=== PATIENT | male | born 1970 | race African-American/Black ===

== ENCOUNTER 2016-04-22 14:05 | Outpatient (RCR) | payer MEDICARE, OTHER ==
[~2016-04-22 14:05] MED LIST: DILAUDID4 MG ORAL; GABAPENTIN400 MG ORAL; GABAPENTIN600 MG ORAL; LOTENSIN40 MG ORAL; MS CONTIN100 MG ORAL; NAPROSYN500 M1 ORAL; OXYCODONE HCL30 MG ORAL; ROCEPHIN 11 GM/50 ML IVPB; VANCOMYCIN1 GM/2502 IVPB
== END 2016-04-23 | disposition home or self-care (01) ==
LOC: WCC 14:05
DX: L89.629 Pressure ulcer of left heel, unspecified stage (principal); G82.21 Paraplegia, complete; I10 Essential (primary) hypertension; Z90.5 Acquired absence of kidney; I82.409 Acute embolism and thrombosis of unspecified deep veins of unspecified lower extremity; M86.9 Osteomyelitis, unspecified
CPT/HCPCS: G0463

== ENCOUNTER → 2016-07-03 | Outpatient (CLI) | payer MEDICARE, OTHER ==
[2016-07-03 16:00] LABS: BASOPHILS % (AUTO) 1.4 % (0.0-2.0); LYMPHOCYTES % (AUTO) 25.9 % (20.0-45.0); MEAN CORPUSCULAR HGB CONC 35.3 G/DL (32.0-36.0); MEAN CORPUSCULAR VOLUME 85 FL (80-99); MEAN PLATELET VOLUME 7.7 FL (6.5-10.1); MONOCYTES % (AUTO) 6.2 % (1.0-10.0); NEUTROPHILS % (AUTO) 64.5 % (45.0-75.0); PLATELET COUNT 199 K/UL (150-450); RED BLOOD COUNT 4.91 M/UL (4.70-6.10); RED CELL DISTRIBUTION WIDTH 15.3 % (11.6-14.8); WHITE BLOOD COUNT 5.6 K/UL (4.8-10.8)
[2016-07-03 16:35] LABS: ANION GAP 17 (5-15); CALCIUM 9.2 mg/dL (8.6-10.2); CARBON DIOXIDE 25 mEQ/L (20-30); CHLORIDE 100 mEQ/L (98-107); CHOLESTEROL 171 mg/dL (< 200); CHOLESTEROL/HDL RATIO 4.3 (3.3-4.4); CREATININE 1.1 mg/dL (0.7-1.2); GLOMERULAR FILTRATION RATE > 60 mL/min (>60); HEMOGLOBIN A1C 5.7 % (< 6.0); HEMOLYSIS 5; LDL CHOLESTEROL (CALC.) 89 mg/dL (60-99); POTASSIUM 4.1 mEQ/L (3.4-4.9); SODIUM 142 mEQ/L (135-145)
== END | disposition home or self-care (01) ==
LOC: LAB 15:19
DX: R53.1 Weakness (principal)
CPT/HCPCS: 36415; 80048; 80061; 83036; 85025

== ENCOUNTER 2020-01-10 12:54 | Outpatient (RCR) | payer MEDICARE, OTHER ==
[~2020-01-10] VITALS: Ht 172.7 cm; Wt 83.9 kg
== END 2020-01-22 | disposition home or self-care (01) ==
LOC: WCC 12:54
DX: L97.525 Non-pressure chronic ulcer of other part of left foot with muscle involvement without evidence of necrosis (principal); L98.492 Non-pressure chronic ulcer of skin of other sites with fat layer exposed; L89.153 Pressure ulcer of sacral region, stage 3; L97.529 Non-pressure chronic ulcer of other part of left foot with unspecified severity; L89.623 Pressure ulcer of left heel, stage 3; G82.20 Paraplegia, unspecified; Z90.5 Acquired absence of kidney; Z86.718 Personal history of other venous thrombosis and embolism; I10 Essential (primary) hypertension; L97.526 Non-pressure chronic ulcer of other part of left foot with bone involvement without evidence of necrosis; L89.624 Pressure ulcer of left heel, stage 4
CPT/HCPCS: 11042; 11043; 11044; 11045; 11046; 11047

== ENCOUNTER → 2020-01-18 | Outpatient (CLI) | payer MEDICARE, OTHER ==
--- NOTE | 2020-01-18 16:27 | Diagnostic Imaging Report ---
Indication: Chronic wounds near distal tibia Technique: Sagittal, axial, and coronal T1 and STIR images of the tibia and fibula Comparison: Left ankle MRI dated 05/04/2014 Findings: There is extensive soft tissue edema. This is fairly diffuse, all with predominant areas being the anteromedial 180 degrees of the distal ankle extending into the foot, the posterior subcutaneous fat and deeper soft tissues near the distal calcaneal tendon and farther down overlying the calcaneus, and in the more proximal subcutaneous fat and deeper compartments diffusely. There is also considerable soft tissue irregularity of the anterior distal ankle. No focal drainable soft tissue fluid collection is demonstrated. Abnormal increased STIR and decreased T1 signal is seen in the medial and anterior distal fibula. This is adjacent to the most intense area of soft tissue edema and irregularity. No abnormal fibular activity is demonstrated. Abnormal increased STIR and decreased T1 activity are seen within the posterior calcaneus. This is also reported on the prior 2015 exam, and distribution of findings is similar. Subtle abnormal T1 and STIR signal are seen in the anterior talus. There is extensive T1 and T2 signal abnormality involving the midfoot, most notably in the navicular and the cuneiforms. This is described in more detail on MRI of the ankle performed at same time. The large tendons are grossly intact. Impression: Evidence of marked soft tissue abnormality of the anteromedial left ankle. Most likely on the basis of cellulitis with ulceration none given stated clinical history. No drainable abscess fluid collection demonstrated. Abnormal signal within the medial distal tibia, the posterior calcaneus, and equivocally the anterior talus, consistent with osteomyelitis. Note that the abnormal calcaneal signal was also described in 2015 Extensive abnormality of the midfoot bones likely representing osteomyelitis. This is described in more detail on separate ankle MRI
--- NOTE | 2020-01-19 14:17 | Diagnostic Imaging Report ---
Indication: Foot ulcer Technique: Sagittal axial and coronal T1 FSE and FSE STIR images of the forefoot Comparison: none Findings: Abnormal increased STIR and decreased T1 signal is seen at the base of the second metatarsal. The remainder of the bones of the second digit demonstrate normal signal. Abnormal increased STIR and decreased T1 signal are seen involving the base of the third metatarsal. The remainder of the bones of the third digit are unremarkable. There is a very superficial fluid collection at the tip of the toe dorsally. There is increased STIR signal with only equivocal T1 signal abnormality of the fifth metatarsal shaft. There is extensive signal abnormality of the included portions of the midfoot bones. This is described in detail on the report of the left ankle MRI. There is extensive dorsal soft tissue edema, and more posteriorly, there is dorsal medial soft tissue irregularity. There appears to be fluid within multiple flexor tendon sheaths. No definite drainable fluid collection demonstrated. Impression: Evidence of osteomyelitis of the second and third metatarsal bases. Increased STIR without definite corresponding increased T1 signal in the midshaft fifth metatarsal, could indicate early osteomyelitis versus reactive changes Small superficial fluid collection at the dorsal tip of the third digit, probably represents a small blister Evidence of fluid within multiple flexor tendon sheaths Extensive soft tissue edema, likely cellulitis given stated clinical history Findings discussed by phone with Dr. Felton at approximately 08/20/2009 on 01/18/2020
--- NOTE | 2020-01-20 10:00 | Diagnostic Imaging Report ---
Indication: Chronic wound near the distal tibia Technique: Sagittal, axial, and coronal T1 FSE and FSE STIR images of the ankle Comparison: 05/04/2014 Findings: There is extensive ulceration and edema of the soft tissues overlying the medial malleolus. Soft tissue abnormality extends into the dorsum of the forefoot. Note drainable fluid collection is demonstrated. There is a small ankle joint effusion. There is also edema of the posterior subcutaneous fat as well as the deeper compartments. Abnormal increased STIR and decreased T1 signal is seen in the anteromedial distal tibia, extending into the medial malleolus. Abnormal increased T1 and STIR signal are also seen in the anterior talus and the calcaneal tuberosity. Extensive signal abnormality is seen within the navicular, the lateral and middle cuneiforms. Less severe but still definite present signal abnormality is seen in the medial cuneiform. There appears to be sparing of the cuboid. Abnormal signal is seen in the bases of the second and third metatarsals as well. The calcaneal signal abnormality was evident on the prior 2014 exam. All of the other areas of bony signal abnormality are new findings. The soft tissue abnormality is much more extensive on the current study. Impression: Findings are highly suggestive of osteomyelitis of the distal medial tibia, the talus, calcaneus, navicular, and the cuneiforms as well as the bases of the second and third metatarsals. Extensive soft tissue abnormality, concordant with stated clinical history of ulceration and likely associated cellulitis No drainable abscess collection demonstrated
== END | disposition home or self-care (01) ==
LOC: MRI 13:31
DX: S81.802A Unspecified open wound, left lower leg, initial encounter (principal); L97.529 Non-pressure chronic ulcer of other part of left foot with unspecified severity; R60.0 Localized edema; M86.9 Osteomyelitis, unspecified; X58.XXXA Exposure to other specified factors, initial encounter; Y92.9 Unspecified place or not applicable

== ENCOUNTER 2020-01-24 13:30 | Outpatient (RCR) | payer MEDICARE, OTHER ==
[~2020-01-24] VITALS: Ht 172.7 cm; Wt 83.9 kg
[2020-02-15] MEDS ORDERED: Lidocaine 4% Top Soln 50ml TOPIC ONE (13:15)
== END 2020-02-21 | disposition home or self-care (01) ==
LOC: WCC 13:30
DX: L97.526 Non-pressure chronic ulcer of other part of left foot with bone involvement without evidence of necrosis (principal); L89.624 Pressure ulcer of left heel, stage 4; L97.525 Non-pressure chronic ulcer of other part of left foot with muscle involvement without evidence of necrosis; L89.153 Pressure ulcer of sacral region, stage 3; L98.492 Non-pressure chronic ulcer of skin of other sites with fat layer exposed; L97.523 Non-pressure chronic ulcer of other part of left foot with necrosis of muscle; L97.812 Non-pressure chronic ulcer of other part of right lower leg with fat layer exposed; Z90.5 Acquired absence of kidney; G82.20 Paraplegia, unspecified; Z86.718 Personal history of other venous thrombosis and embolism; I10 Essential (primary) hypertension
CPT/HCPCS: 11042; 11043; 11044; 11045; 11046; 11047; 87070; 87181; 87205; 97606

== ENCOUNTER → 2020-01-31 | Outpatient (CLI) | payer MEDICARE, OTHER ==
[~2020-01-31] VITALS: Ht 172.7 cm; Wt 83.9 kg
[~2020-01-31] MED LIST changes: +Dyna-Hex 2% Top Sol 2oz TOPIC SCH; +Heparin1,000 units/500ml Premix(Conc:2 units/ml) IV PRN; +Lidocaine 1% Plain 30 ml INJ ONE; +Lidocaine 1% Plain 30 ml INJ PRN
--- NOTE | 2020-01-31 14:32 | Pre-Procedure Note/Attestation ---
Pre-Procedure Note/Attestation Complete Prior to Procedure Planned Procedure: not applicable Procedure Narrative: PICC Indications for Procedure Pre-Operative Diagnosis: needs IV access Attestation I attest that I discussed the nature of the procedure; its benefits; risks and complications; and alternatives (and the risks and benefits of such alternatives), prior to the procedure, with the patient (or the patient's legal motor vehicle representative). I attest that, if there was a reasonable possibility of needing a blood levin sfusion, the patient (or the patient's legal motor vehicle representative) was given the [facility] standardized written summary, pursuant to the Krzysztof [place] Blood Safety Act ([place] Health and Safety Code # 1645, as amended). I attest that I re-evaluated the patient just prior to the surgery and that there has been no change in the patient's H&P, except as documented below: Srinath Osborne MD Jan 31, 2020 14:32
--- NOTE | 2020-02-01 13:29 | Diagnostic Imaging Report ---
Indications: Needs long-term IV access Technique: Ultrasound confirms patent compressible right brachial vein. Total sterile technique, including sterile probe cover and sterile gel, hat, mask, sterile gown, large sterile drape, and preparation with 2% chlorhexidine utilized. Local anesthesia with 1% lidocaine. Under real-time ultrasound guidance, puncture brachial vein using 21-gauge needle, documented and archived, passage 0.018 guidewire under direct fluoroscopy, which was used to determine appropriate catheter length, exchange for 4 [place] peel-away sheath. 4 [place] Bard dual-lumen power PICC cut to 30 cm. It was inserted through the peel-away sheath. Peel-away sheath and guidewire removed. Catheter fixed to the skin. Both catheter ports aspirated and flushed. Patient tolerated procedure well, without immediate complication. Digital radiograph documents satisfactory catheter tip position, at the cavoatrial junction. Attempt initially made at accessing left side using the above-described technique. However, the guidewire would not pass centrally. 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 Total fluoroscopy time 115.1 seconds. Total dose area product [id number] Total number of images: 3 Impression: Successful placement of right arm PICC under sonographic and fluoroscopic guidance, as described above. Initial attempt at left arm placement unsuccessful due to central venoocclusive disease
== END | disposition home or self-care (01) ==
LOC: RAD 13:35
DX: R79.89 Other specified abnormal findings of blood chemistry (principal); B99.9 Unspecified infectious disease
CPT/HCPCS: 36573; 75820; 76937; J1644; J2001

== ENCOUNTER 2020-02-28 13:27 | Outpatient (RCR) | payer MEDICARE, OTHER ==
[~2020-02-28] VITALS: Ht 172.7 cm; Wt 83.9 kg
[~2020-02-28 13:27] MED LIST changes: -Dyna-Hex 2% Top Sol 2oz TOPIC SCH; -Heparin1,000 units/500ml Premix(Conc:2 units/ml) IV PRN; -Lidocaine 1% Plain 30 ml INJ ONE; -Lidocaine 1% Plain 30 ml INJ PRN
== END 2020-03-23 | disposition home or self-care (01) ==
LOC: WCC 13:27
DX: L97.526 Non-pressure chronic ulcer of other part of left foot with bone involvement without evidence of necrosis (principal); L89.624 Pressure ulcer of left heel, stage 4; L97.525 Non-pressure chronic ulcer of other part of left foot with muscle involvement without evidence of necrosis; L89.153 Pressure ulcer of sacral region, stage 3; L98.492 Non-pressure chronic ulcer of skin of other sites with fat layer exposed; L97.523 Non-pressure chronic ulcer of other part of left foot with necrosis of muscle; L97.812 Non-pressure chronic ulcer of other part of right lower leg with fat layer exposed; I10 Essential (primary) hypertension; Z90.5 Acquired absence of kidney; Z86.718 Personal history of other venous thrombosis and embolism
CPT/HCPCS: 11042; 11043; 11044; 11045; 11046; 11047; 15277; 15278; 97606; Q4103

== ENCOUNTER 2020-03-27 11:13 | Outpatient (RCR) | payer MEDICARE, OTHER ==
[~2020-03-27] VITALS: Ht 172.7 cm; Wt 83.9 kg
[2020-04-04] MEDS ORDERED: Lidocaine 4% Top Soln 50ml TOPIC ONE (13:15)
== END 2020-04-23 | disposition home or self-care (01) ==
LOC: WCC 11:13
DX: L97.526 Non-pressure chronic ulcer of other part of left foot with bone involvement without evidence of necrosis (principal); L89.624 Pressure ulcer of left heel, stage 4; L97.525 Non-pressure chronic ulcer of other part of left foot with muscle involvement without evidence of necrosis; L89.153 Pressure ulcer of sacral region, stage 3; L98.492 Non-pressure chronic ulcer of skin of other sites with fat layer exposed; L97.523 Non-pressure chronic ulcer of other part of left foot with necrosis of muscle; L97.812 Non-pressure chronic ulcer of other part of right lower leg with fat layer exposed; Z90.5 Acquired absence of kidney; I10 Essential (primary) hypertension; Z86.718 Personal history of other venous thrombosis and embolism; Z79.899 Other long term (current) drug therapy
CPT/HCPCS: 11042; 11043; 11046

== ENCOUNTER 2020-04-24 10:58 | Outpatient (RCR) | payer MEDICARE, OTHER | END 2020-05-21 | disposition home or self-care (01) | LOC: WCC 10:58 | DX: L97.526 Non-pressure chronic ulcer of other part of left foot with bone involvement without evidence of necrosis (principal); L89.624 Pressure ulcer of left heel, stage 4; L97.525 Non-pressure chronic ulcer of other part of left foot with muscle involvement without evidence of necrosis; L89.153 Pressure ulcer of sacral region, stage 3; L98.492 Non-pressure chronic ulcer of skin of other sites with fat layer exposed; L97.523 Non-pressure chronic ulcer of other part of left foot with necrosis of muscle; L97.812 Non-pressure chronic ulcer of other part of right lower leg with fat layer exposed; Z90.5 Acquired absence of kidney; I10 Essential (primary) hypertension; Z86.718 Personal history of other venous thrombosis and embolism; Z79.899 Other long term (current) drug therapy; L97.522 Non-pressure chronic ulcer of other part of left foot with fat layer exposed | CPT/HCPCS: 11042; 11043; 11046; 15275; 15276; Q4103 ==